=== PATIENT | female | born 1940 ===

== ENCOUNTER 2022-01-20 05:47 | Outpatient (REF) | payer SELFPAY ==
[2022-01-20 11:39] LABS: International Normalized Ratio 1.4; Prothrombin Time (Protime)PT. 17.2 SECONDS (11.7-14.9)
== END 2022-01-20 23:59 | disposition home or self-care (01) ==
LOC: OLS.ACW100 05:47
PROVIDERS: Visit Provider Family Medicine
DX: I48.91 Unspecified atrial fibrillation (principal); Z79.01 Long term (current) use of anticoagulants
CPT/HCPCS: 36415; 85610

== ENCOUNTER → 2022-01-25 | Outpatient (REF) | payer SELFPAY ==
[2022-01-25 08:05] LABS: INR Fingerstick 5.2; Prothrombin Time Fingerstick 56.5 SEC (11.7-14.9)
[2022-01-25 08:46] LABS: Prothrombin Time (Protime)PT. 47.2 SECONDS (11.7-14.9)
[2022-01-25 08:58] LABS: International Normalized Ratio 5.1
== END | disposition home or self-care (01) ==
LOC: OLS.ACW100 05:00
PROVIDERS: Visit Provider Family Medicine
DX: J18.9 Pneumonia, unspecified organism (principal); A41.9 Sepsis, unspecified organism; K29.00 Acute gastritis without bleeding; E78.5 Hyperlipidemia, unspecified; D72.829 Elevated white blood cell count, unspecified; Z79.01 Long term (current) use of anticoagulants
CPT/HCPCS: 36416; 85610

== ENCOUNTER → 2022-01-26 | Outpatient (REF) | payer SELFPAY ==
[2022-01-26 10:05] LABS: INR Fingerstick 6.1; Prothrombin Time Fingerstick 65.2 SEC (11.7-14.9)
[2022-01-26 11:12] LABS: Prothrombin Time (Protime)PT. 50.1 SECONDS (11.7-14.9)
[2022-01-26 11:22] LABS: International Normalized Ratio 5.5
== END | disposition home or self-care (01) ==
LOC: OLS.ACW100 04:00
PROVIDERS: Visit Provider Family Medicine
DX: I48.0 Paroxysmal atrial fibrillation (principal); A41.9 Sepsis, unspecified organism; Z79.01 Long term (current) use of anticoagulants; J18.9 Pneumonia, unspecified organism; K29.00 Acute gastritis without bleeding; E78.5 Hyperlipidemia, unspecified; D72.829 Elevated white blood cell count, unspecified
CPT/HCPCS: 36415; 36416; 85610